=== PATIENT | male | born 2000 | race Caucasian/White ===

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

== ENCOUNTER → 2020-02-05 | Emergency (ER) | payer OTHER ==
[~2020-02-05] VITALS: Ht 182.9 cm; Wt 64.4 kg
[2020-02-05 05:18] VITALS: Ht 182.9 cm; Wt 64.4 kg
[2020-02-05 05:39] VITALS: BP 152/107
== END ==
LOC: ED 05:17
DX: Z02.89 Encounter for other administrative examinations (principal)

== ENCOUNTER 2020-04-06 18:34 | Emergency (ER) | payer OTHER ==
[~2020-04-06] VITALS: Ht 185.4 cm; Wt 62.1 kg
[2020-04-06 18:39] VITALS: Ht 185.4 cm; Wt 62.1 kg
[2020-04-06 20:29] VITALS: BP 128/80
== END 2020-04-06 20:29 | disposition home or self-care (01) ==
LOC: ED 18:34
DX: F07.81 Postconcussional syndrome (principal); F41.9 Anxiety disorder, unspecified